=== PATIENT | female | born 1995 | race African-American/Black ===

== ENCOUNTER 2019-07-15 20:51 | Emergency (ER) | payer MEDICAID ==
[~2019-07-15] VITALS: Ht 167.6 cm; Wt 55.0 kg
[2019-07-15] MEDS ORDERED: BUTORPHANOL TARTRATE 2 MG/ML VIAL IM PRN (21:45)
[2019-07-15] MEDS ORDERED: ONDANSETRON HCL 4MG/2ML INJ IV ONE (21:45)
[2019-07-15] MEDS ORDERED: SODIUM CHLORIDE 0.9% 1,000 ML IV ONE (21:45)
[2019-07-15 23:35] LABS: CHLORIDE 104 mEq/L (98-107)
[2019-07-15 23:36] LABS: BASOPHILS % 0.5 % (0.0-2.0); EOSINOPHILS % 1.2 % (0.0-5.0); HEMATOCRIT. 38.6 % (36.0-48.0); HEMOGLOBIN. 13.2 g/dL (12.0-16.0); LYMPHOCYTES % 33.1 % (20.0-50.0); MEAN CORPUSCULAR HEMOGLOBIN 33.8 pg (28.0-32.0); MEAN CORPUSCULAR VOLUME 99.1 fL (81.0-99.0); MEAN PLATELET VOLUME 9.6 fl (7.4-10.4); MONOCYTES % 8.4 % (2.0-8.0); NEUTROPHILS % 56.8 % (40.0-76.0); PLATELET 183 x1000/uL (130-400); RED CELL DISTRIBUTION WIDTH 13.2 % (11.6-14.6)
[2019-07-16] LABS: B-HCG QUANTITATIVE 2074 mIU/mL (<3)
[2019-07-16] MEDS ORDERED: HYDROCODONE/ACETAMINOPHEN 5/325MG TABLET PO ONE (02:00)
[2019-07-16 02:08] VITALS: BP 109/78
== END 2019-07-16 02:18 | disposition home or self-care (01) ==
LOC: ER 20:51
DX: O02.1 Missed abortion (principal); O26.891 Other specified pregnancy related conditions, first trimester; Z3A.01 Less than 8 weeks gestation of pregnancy; R56.9 Unspecified convulsions
CPT/HCPCS: 36415; 76801; 76817; 80053; 83690; 84702; 85025; 86850; 86900; 86901; 96372; 96374; 99284; J2405; J7030